=== PATIENT | female | born 2000 | race American Indian/Alaskan Native ===

== ENCOUNTER 2020-12-08 14:11 | Emergency (ER) | payer SELFPAY ==
[2020-12-08 14:59] VITALS: BP 108/72
== END 2020-12-08 18:50 | disposition left against medical advice (07) ==
LOC: ED 14:11
DX: Z04.1 Encounter for examination and observation following transport accident (principal); Z53.21 Procedure and treatment not carried out due to patient leaving prior to being seen by health care provider; V89.2XXA Person injured in unspecified motor-vehicle accident, traffic, initial encounter; Y93.89 Activity, other specified; Y92.488 Other paved roadways as the place of occurrence of the external cause; Y99.8 Other external cause status